=== PATIENT | male | born 1980 | race Caucasian/White ===

== ENCOUNTER → 2017-10-01 | Outpatient (CLI) | payer BC ==
[2017-10-01 11:56] LABS: Anion Gap 11 mmol/L; Blood Urea Nitrogen 15 mg/dL (9-20); Calcium 9.5 mg/dL (8.4-10.2); Carbon Dioxide 28 mmol/L (22-30); Chloride 102 mmol/L (98-107); Cholesterol 197 mg/dL (<200); Glucose 91 mg/dL (74-99); HDL Cholesterol 36 mg/dL (40-60); LDL Cholesterol,Calculated 123 mg/dL (0-99); Potassium 4.4 mmol/L (3.5-5.1); Sodium 141 mmol/L (137-145); Triglycerides 190 mg/dL (<150)
== END | disposition home or self-care (01) ==
LOC: LABWHC1 11:15
PROVIDERS: ATTEND Nurse Practitioner Family
DX: K58.0 Irritable bowel syndrome with diarrhea (principal); E66.9 Obesity, unspecified; I10 Essential (primary) hypertension; Z13.1 Encounter for screening for diabetes mellitus; Z13.220 Encounter for screening for lipoid disorders; Z68.30 Body mass index [BMI] 30.0-30.9, adult
CPT/HCPCS: 36415; 80048; 80061; 82784; 83516; 84443

== ENCOUNTER 2018-09-04 15:05 | Emergency (ER) | payer BC ==
[2018-09-04 15:13] VITALS: BP 154/93; PULSE 78; RESP 16; TEMP 97.4
[2018-09-04] MEDS ORDERED: LIDOCAINE 1% INJ 10MG/ML (20 ML MDV) SQ ONE (15:23)
--- NOTE | 2018-09-04 15:23 | ED ---
General Adult HPI - General Chief complaint: Head Injury Stated complaint: Head injury Time Seen by Provider: 09/04/18 15:14 Source: patient, RN notes reviewed, old records reviewed Mode of arrival: ambulatory Limitations: no limitations - History of Present Illness Initial comments: 37-year-old male presents to our status post head injury. 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 He has laceration to the scalp. He states his tetanus is up-to-date. He states he did not lose consciousness but came very close. He is felt lightheaded and dizzy with headache since the injury. He has been ambulatory. He has no chronic medical issues, no anticoagulation. - Related Data Allergies Allergy/AdvReac Type Severity Reaction Status Date / Time No Known Allergies Allergy Verified 09/04/18 15:13 Review of Systems ROS Statement: Those systems with pertinent positive or pertinent negative responses have been documented in the HPI. ROS Other: All systems not noted in ROS Statement are negative. Past Medical History Past Medical History: No Reported History History of Any Multi-Drug Resistant Organisms: None Reported Past Surgical History: No Surgical Hx Reported Past Psychological History: No Psychological Hx Reported Smoking Status: Never smoker Past Alcohol Use History: None Reported Past Drug Use History: None Reported General Exam Limitations: no limitations General appearance: alert, in no apparent distress Head exam: Present: normocephalic. Absent: atraumatic (Laceration to the left parietal scalp, 3 cm laceration.) Eye exam: Present: normal appearance. Absent: PERRL (And scoria, left pupil 4 mm reactive, right pupil 3 mm and reactive) ENT exam: Present: normal exam Neck exam: Present: normal inspection. Absent: tenderness, meningismus, full ROM Respiratory exam: Present: normal lung sounds bilaterally. Absent: respiratory distress, wheezes Cardiovascular Exam: Present: regular rate, normal rhythm GI/Abdominal exam: Present: soft, distended Extremities exam: Present: normal inspection, normal capillary refill. Absent: pedal edema Back exam: Present: normal inspection. Absent: full ROM, tenderness Neurological exam: Present: alert, oriented X3, CN II-XII intact. Absent: motor sensory deficit Course Vital Signs 09/04/18 15:10 Temperature 97.4 F L Pulse Rate 78 Respiratory 16 Rate Blood Pressure 154/93 O2 Sat by Pulse 96 Oximetry Procedures - Laceration Laceration #1 Consent Obtained: verbal consent Indication: laceration Site: scalp Description: linear Anesthetic Used: lidocaine 1% Anesthesia Technique: local infiltration Amount (mls): 5 Pre-repair: wound explored, irrigated extensively, deep structures intact Type of Sutures: nylon Size of Sutures: 4-0 Number of Sutures: 4 Technique: simple, interrupted Patient Tolerated Procedure: well Medical Decision Making - Medical Decision Making 37-year-old male with head injury, scalp laceration. Head CT is obtained, negative for intracranial hemorrhage or mass effect. Laceration is repaired with nylon suture, patient can return for suture removal in 10days. Disposition Clinical Impression: Hematoma of scalp, Laceration of scalp, Concussion without loss of consciousness Disposition: HOME SELF-CARE Condition: Good Instructions (If sedation given, give patient instructions): Concussion (ED), Care For Your Stitches (ED), Laceration (ED) Additional Instructions: Please have sutures removed in 10 days. Is patient prescribed a controlled substance at d/c from ED?: No Referrals: None,Stated [Primary Care Provider] - 1-2 days Christal De Leon MD [STAFF PHYSICIAN] - 1-2 days
--- NOTE | 2018-09-04 15:45 | CT ---
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 CT DLP: 1090.4 mGycm. Automated Exposure Control for Dose Reduction was Utilized. TECHNIQUE: CT scan of the head is performed without contrast. FINDINGS: Ventricles and sulci appear normal. There is no mass effect nor midline shift. There is no sign of intracranial hemorrhage. Calvarium is intact. IMPRESSION: Negative head CT scan..
== END 2018-09-04 16:17 | disposition home or self-care (01) ==
LOC: EC 15:05
DX: S06.0X0A Concussion without loss of consciousness, initial encounter (principal); S01.01XA Laceration without foreign body of scalp, initial encounter; W20.8XXA Other cause of strike by thrown, projected or falling object, initial encounter; Y93.89 Activity, other specified; Y92.89 Other specified places as the place of occurrence of the external cause
CPT/HCPCS: 70450; 99284; 12002; J2001

== ENCOUNTER → 2019-01-08 | Outpatient (CLI) | payer BC ==
[2019-01-08 11:20] LABS: Basophils % (A) 1 %; Eosinophils # (A) 0.1 k/uL (0-0.7); Eosinophils % (A) 1 %; HCT 48.1 % (39.0-53.0); HGB 15.8 gm/dL (13.0-17.5); Lymphocytes # (A) 2.5 k/uL (1.0-4.8); Lymphocytes % (A) 33 %; MCH 30.6 pg (25.0-35.0); MCHC 32.9 g/dL (31.0-37.0); MCV 93.1 fL (80.0-100.0); Mean Platelet Volume 7.2; Monocytes # (A) 0.4 k/uL (0-1.0); Monocytes % (A) 6 %; Neutrophils # (A) 4.2 k/uL (1.3-7.7); Neutrophils % (A) 57 %; Platelet Count 225 k/uL (150-450); RBC 5.17 m/uL (4.30-5.90); RDW 12.7 % (11.5-15.5); WBC 7.4 k/uL (3.8-10.6)
[2019-01-08 16:47] LABS: African American GFR (CKD) 111.7 (60.0-200.0); Albumin 4.4 g/dL (3.80-4.90); Albumin/Globulin Ratio 1.69 (1.60-3.17); Calcium 9.8 mg/dL (8.7-10.3); Globulin 2.6 g/dL (1.6-3.3); Potassium 4.5 mmol/L (3.5-5.5); Total Bilirubin 0.6 mg/dL (0.3-1.2)
[2019-01-08 16:48] LABS: Chol/HDL Ratio 5.32; LDL Cholesterol,Calculated 109.6 mg/dL (0.0-131.0); VLDL Calculation 54.4 mg/dL (5.00-40.00)
[2019-01-08 18:10] LABS: Hemoglobin A1C 5.4 % (4.0-6.0)
== END | disposition home or self-care (01) ==
LOC: LABWHC1 10:38
PROVIDERS: ATTEND Family Medicine
DX: Z00.00 Encounter for general adult medical examination without abnormal findings (principal)
CPT/HCPCS: 36415; 80053; 80061; 83036; 84443; 85025

== ENCOUNTER 2020-04-17 21:08 | Emergency (ER) | payer BC ==
[2020-04-17 21:22] VITALS: BP 160/90; PULSE 82; RESP 18; TEMP 98.8
--- NOTE | 2020-04-17 21:41 | ED ---
General Adult HPI - General Chief complaint: Fall Stated complaint: Fall, Back pain Time Seen by Provider: 04/17/20 21:24 Source: patient, RN notes reviewed Mode of arrival: ambulatory Limitations: no limitations - History of Present Illness Initial comments: Patient is a pleasant 39-year-old male presenting to the emergency Department with complaints of low back pain. 2 days ago patient was getting out of his truck when his leg slipped. Patient fell back and struck his lower back/left hip on the rail. Patient has had some discomfort since that time, somewhat worse yesterday. Patient is having some tingling of his left leg. No incontinence or retention of bowel or bladder. No weakness. No history of chronic back problems. - Related Data Home Medications Medication Instructions Recorded Confirmed Enalapril [Vasotec] 20 mg PO DAILY 04/17/20 04/17/20 Multivitamins, Thera [Multivitamin 1 tab PO DAILY 04/17/20 04/17/20 (formulary)] Zinc Gluconate [Zinc] 50 mg PO DAILY 04/17/20 04/17/20 Previous Rx's Medication Instructions Recorded Cyclobenzaprine [Flexeril] 10 mg PO TID PRN #12 tablet 04/17/20 predniSONE [Deltasone] 20 mg PO BID #10 tab 04/17/20 Allergies Allergy/AdvReac Type Severity Reaction Status Date / Time No Known Allergies Allergy Verified 04/17/20 21:53 Review of Systems ROS Statement: Those systems with pertinent positive or pertinent negative responses have been documented in the HPI. ROS Other: All systems not noted in ROS Statement are negative. Constitutional: Denies: fever Eyes: Denies: eye pain ENT: Denies: ear pain Respiratory: Denies: cough Cardiovascular: Denies: chest pain Endocrine: Denies: fatigue Gastrointestinal: Denies: abdominal pain Genitourinary: Denies: dysuria Musculoskeletal: Reports: as per HPI, back pain Skin: Denies: rash Neurological: Reports: paresthesias. Denies: weakness Past Medical History Past Medical History: Hypertension History of Any Multi-Drug Resistant Organisms: None Reported Past Surgical History: No Surgical Hx Reported Past Psychological History: No Psychological Hx Reported Smoking Status: Never smoker Past Alcohol Use History: Rare Past Drug Use History: None Reported General Exam Limitations: no limitations General appearance: alert, in no apparent distress Head exam: Present: normocephalic Eye exam: Present: normal appearance Neck exam: Present: normal inspection Respiratory exam: Present: normal lung sounds bilaterally Cardiovascular Exam: Present: regular rate, normal rhythm GI/Abdominal exam: Present: soft. Absent: tenderness Extremities exam: Present: normal inspection, tenderness (Mild tenderness left lateral/posterior hip) Back exam: Absent: vertebral tenderness Neurological exam: Present: alert Psychiatric exam: Present: normal affect, normal mood Skin exam: Present: normal color Course Vital Signs 04/17/20 21:19 Temperature 98.8 F Pulse Rate 82 Respiratory 18 Rate Blood Pressure 160/90 O2 Sat by Pulse 97 Oximetry Medical Decision Making - Medical Decision Making Patient reevaluated and updated - Radiology Data Radiology results: image reviewed (X-ray left hip and pelvis shows no acute process. Lumbar x-ray does show some spurring, otherwise no acute process) Disposition Clinical Impression: Low back pain Disposition: HOME SELF-CARE Condition: Stable Instructions (If sedation given, give patient instructions): Acute Low Back Pain (ED) Additional Instructions: Please follow-up with primary care physician in the next day or 2 for recheck. Return for weakness, loss of control of bowel or bladder, loss of sensation, worsening symptoms or other concerns. Prescription was sent to your pharmacy Prescriptions: predniSONE [Deltasone] 20 mg PO BID #10 tab Cyclobenzaprine [Flexeril] 10 mg PO TID PRN #12 tablet PRN Reason: Pain Is patient prescribed a controlled substance at d/c from ED?: No Referrals: Velasquez Leigh MD [STAFF PHYSICIAN] - 1-2 days Time of Disposition: 22:23
--- NOTE | 2020-04-17 21:59 | XR ---
EXAMINATION TYPE: XR Hip LT and AP Pelvis DATE OF EXAM: 04/17/2020 COMPARISON: None HISTORY: Pain TECHNIQUE: 3 views FINDINGS: Pelvic ring is intact. Proximal left femur and hip joint appear normal. Sacroiliac joints a ppear normal. There is no hip dysplasia. IMPRESSION: Normal pelvis and left hip exam.
--- NOTE | 2020-04-17 22:00 | XR ---
EXAMINATION TYPE: XR lumbosacral spine min 4V DATE OF EXAM: 04/17/2020 COMPARISON: NONE HISTORY: Back pain TECHNIQUE: 5 views FINDINGS: Lumbar vertebra have normal alignment. There is no compression fracture. Posterior elements are intact. There is mild spurring of the endplates. Sacroiliac joints are intact. IMPRESSION: Mild spurring. No fracture seen.
[2020-04-17] MEDS ORDERED: KETOROLAC 15 MG/ML 1 ML VIAL IM STA (22:24)
== END 2020-04-17 22:35 | disposition home or self-care (01) ==
LOC: EC 21:08
DX: M54.5 Low back pain (principal); R20.2 Paresthesia of skin; I10 Essential (primary) hypertension; Z79.899 Other long term (current) drug therapy
CPT/HCPCS: 72110; 73502; 96372; 99283; J1885

== ENCOUNTER → 2020-05-08 | Outpatient (CLI) | payer OTHER ==
--- NOTE | 2020-05-08 15:56 | XR ---
EXAMINATION TYPE: XR knee complete LT DATE OF EXAM: 05/08/2020 CLINICAL HISTORY: Fall injury with pain. TECHNIQUE: Three views of the left knee are obtained. COMPARISON: None. FINDINGS: There is no acute fracture/dislocation evident in left knee. The tri-compartment joint sp aces appear within normal limits. The overlying soft tissue appears unremarkable. IMPRESSION: As above.
--- NOTE | 2020-05-08 15:57 | XR ---
Lumbosacral spine HISTORY: Left hip and knee pain 5 views lumbosacral spine Correlation to prior exam 04/17/2020 Lumbar vertebral bodies show preserved height, alignment, and bone mineralization. No evident spondyl olysis. Disc spaces are stable. Sclerosis present in the posterior elements. There is multilevel spon dylosis. IMPRESSION: Stable degenerative disc disease, facet arthropathy.
== END | disposition home or self-care (01) ==
LOC: RADXRMAIN 14:45
PROVIDERS: ATTEND Family Medicine
DX: M51.37 Other intervertebral disc degeneration, lumbosacral region (principal); M47.817 Spondylosis without myelopathy or radiculopathy, lumbosacral region; R20.0 Anesthesia of skin
CPT/HCPCS: 72110

== ENCOUNTER 2020-05-27 11:04 | Emergency (ER) | payer BC ==
[2020-05-27 11:08] VITALS: BP 138/84; PULSE 76; RESP 20; TEMP 98.4
--- NOTE | 2020-05-27 11:57 | XR ---
EXAMINATION TYPE: XR ankle complete RT DATE OF EXAM: 05/27/2020 CLINICAL HISTORY: Pain after falling injury yesterday TECHNIQUE: Frontal, lateral and oblique images of the right ankle are obtained. COMPARISON: None. FINDINGS: There is no acute fracture/dislocation evident in the right ankle. The ankle mortise appe ars within normal limits. Anterior soft tissue phleboliths noted distal leg level. Incidental small s uperior calcaneal spur. Prominent spur or bony projection dorsal aspect of the talonavicular articula tion. IMPRESSION: There is no acute fracture or dislocation in the right ankle.
[2020-05-27] MEDS ORDERED: ACET/COD 300 MG/30 MG STARTER PACK 6 TAB BTL PO STA (12:22)
--- NOTE | 2020-05-27 12:23 | ED ---
General Adult HPI - General Chief complaint: Extremity Injury, Lower Stated complaint: ankle injury Time Seen by Provider: 05/27/20 11:09 Source: patient, RN notes reviewed Mode of arrival: ambulatory Limitations: no limitations - History of Present Illness Initial comments: 39-year-old male presents emergency department to her right ankle pain. Patient states this started after he rolled his ankle felt a pop. Patient states his pain on lateral portion he states overnight pain seemed to worsen and more difficult ambulate. Patient had no prior fractures or sprains of her ankle no other noted injuries no paresthesias - Related Data Home Medications Medication Instructions Recorded Confirmed Enalapril [Vasotec] 20 mg PO DAILY 04/17/20 04/17/20 Multivitamins, Thera [Multivitamin 1 tab PO DAILY 04/17/20 04/17/20 (formulary)] Zinc Gluconate [Zinc] 50 mg PO DAILY 04/17/20 04/17/20 Previous Rx's Medication Instructions Recorded Cyclobenzaprine [Flexeril] 10 mg PO TID PRN #12 tablet 04/17/20 predniSONE [Deltasone] 20 mg PO BID #10 tab 04/17/20 Ibuprofen [Motrin] 600 mg PO Q8HR PRN #30 tab 05/27/20 Allergies Allergy/AdvReac Type Severity Reaction Status Date / Time No Known Allergies Allergy Verified 05/27/20 11:08 Review of Systems ROS Statement: Those systems with pertinent positive or pertinent negative responses have been documented in the HPI. ROS Other: All systems not noted in ROS Statement are negative. Past Medical History Past Medical History: Hypertension History of Any Multi-Drug Resistant Organisms: None Reported Past Surgical History: No Surgical Hx Reported Past Psychological History: No Psychological Hx Reported Smoking Status: Never smoker Past Alcohol Use History: Occasional Past Drug Use History: None Reported General Exam Limitations: no limitations General appearance: alert, in no apparent distress Head exam: Present: atraumatic, normocephalic, normal inspection Respiratory exam: Present: normal lung sounds bilaterally. Absent: respiratory distress, wheezes, rales, rhonchi, stridor Cardiovascular Exam: Present: regular rate, normal rhythm, normal heart sounds. Absent: systolic murmur, diastolic murmur, rubs, gallop, clicks Extremities exam: Present: other (Right ankle there is moderate swelling the lateral malleolus region with tenderness with palpation no proximal tib-fib tenderness no foot tenderness, neurovascular intact) Course Vital Signs 05/27/20 11:06 Temperature 98.4 F Pulse Rate 76 Respiratory 20 Rate Blood Pressure 138/84 O2 Sat by Pulse 99 Oximetry Medical Decision Making - Medical Decision Making X-rays reviewed and read by radiologist no acute fracture. Patient is right ankle sprain [facility] and will follow-up with orthopedics return parameters were discussed. Disposition Clinical Impression: Right ankle sprain Disposition: HOME SELF-CARE Condition: Stable Instructions (If sedation given, give patient instructions): Ankle Sprain (ED) Additional Instructions: Please return to the Emergency Department if symptoms worsen or any other concerns. Prescriptions: Ibuprofen [Motrin] 600 mg PO Q8HR PRN #30 tab PRN Reason: Pain Is patient prescribed a controlled substance at d/c from ED?: No Referrals: Chandan Steele MD [Primary Care Provider] - 1-2 days Conrado Lundy MD [STAFF PHYSICIAN] - 1-2 days Time of Disposition: 12:23
== END 2020-05-27 12:36 | disposition home or self-care (01) ==
LOC: EC 11:04
DX: S93.401A Sprain of unspecified ligament of right ankle, initial encounter (principal); X50.1XXA Overexertion from prolonged static or awkward postures, initial encounter; I10 Essential (primary) hypertension
CPT/HCPCS: 73610; 99284; L4350

== ENCOUNTER 2020-07-01 09:57 | Emergency (ER) | payer BC ==
[2020-07-01 10:25] VITALS: BP 149/96; PULSE 92; RESP 18; TEMP 98.4
[2020-07-01] MEDS ORDERED: BACITRACIN OINT 1 EACH PACKET TOPICAL ONE (10:37)
[2020-07-01] MEDS ORDERED: LIDOCAINE 1% INJ 10MG/ML (20 ML MDV) SQ ONE (10:37)
--- NOTE | 2020-07-01 10:38 | ED ---
Wound/Laceration HPI - General Chief Complaint: Wound/Laceration Stated Complaint: L hand laceration Time Seen by Provider: 07/01/20 10:34 Source: patient Mode of arrival: ambulatory Limitations: no limitations - History of Present Illness Initial Comments: Patient is a 39-year-old male presenting to emergency Department with complaints of a laceration to his left hand. Patient states just prior to arrival, he was opening an Easter present for his child when the knife slipped and he cut the webspace between his first and second digit on the left hand. Bleeding is controlled at this time. He is not on blood thinners. His tetanus vaccine is up-to-date. There are no further complaints at this time. - Related Data Home Medications Medication Instructions Recorded Confirmed Enalapril [Vasotec] 20 mg PO DAILY 04/17/20 04/17/20 Multivitamins, Thera [Multivitamin 1 tab PO DAILY 04/17/20 04/17/20 (formulary)] Zinc Gluconate [Zinc] 50 mg PO DAILY 04/17/20 04/17/20 Previous Rx's Medication Instructions Recorded Cyclobenzaprine [Flexeril] 10 mg PO TID PRN #12 tablet 04/17/20 predniSONE [Deltasone] 20 mg PO BID #10 tab 04/17/20 Ibuprofen [Motrin] 600 mg PO Q8HR PRN #30 tab 05/27/20 Allergies Allergy/AdvReac Type Severity Reaction Status Date / Time No Known Allergies Allergy Verified 07/01/20 10:25 Review of Systems ROS Statement: Those systems with pertinent positive or pertinent negative responses have been documented in the HPI. ROS Other: All systems not noted in ROS Statement are negative. Past Medical History Past Medical History: Hypertension History of Any Multi-Drug Resistant Organisms: None Reported Past Surgical History: No Surgical Hx Reported Additional Past Surgical History / Comment(s): HAND Past Psychological History: No Psychological Hx Reported Smoking Status: Never smoker Past Alcohol Use History: Occasional Past Drug Use History: None Reported General Exam - General Exam Comments Initial Comments: GENERAL: Patient is well-developed and well-nourished. Patient is nontoxic and in no acute distress. HEAD: Atraumatic, normocephalic. EYES: Pupils equal round and reactive to light, extraocular movements intact, sclera anicteric, conjunctiva are normal. Eyelids were unremarkable. ENT: Nares patent, oropharynx clear without exudates. Moist mucous membranes. NECK: Normal range of motion, supple without lymphadenopathy or JVD. LUNGS: Unlabored respirations. Breath sounds clear to auscultation bilaterally and equal. No wheezes rales or rhonchi. HEART: Regular rate and rhythm without murmurs, rubs or gallops. ABDOMEN: Soft, nontender, normoactive bowel sounds. No guarding, no rebound. No masses appreciated. : Deferred MUSCULOSKELETAL: Normal extremities with adequate strength and normal range of motion, no pitting or edema. No clubbing or cyanosis. NEUROLOGICAL: Patient is alert and oriented x 3. Motor and sensory are also intact. Cranial nerves II through XII grossly intact. Symmetrical smile. Normal speech, normal gait. PSYCH: Normal mood, normal affect. SKIN: Warm, Dry, normal turgor, no rashes. Patient has a 2 cm laceration in the webbing space of the first and second digit of the left hand. Bleeding is con trolled. Limitations: no limitations Course Vital Signs 07/01/20 10:23 Temperature 98.4 F Pulse Rate 92 Respiratory 18 Rate Blood Pressure 149/96 O2 Sat by Pulse 96 Oximetry Procedures - Laceration Laceration #1 Consent Obtained: verbal consent Indication: laceration Site: hand (Left hand, in between webspace of first and second digit) Size (cm): 2 Description: linear Depth: simple, single layer Anesthetic Used: lidocaine 1% Anesthesia Technique: local infiltration Amount (mls): 3 Pre-repair: irrigated extensively Type of Sutures: nylon Size of Sutures: 5-0 Number of Sutures: 6 Technique: simple, interrupted Patient Tolerated Procedure: well Medical Decision Making - Medical Decision Making Patient is a 39-year-old male here with a 2 cm laceration in the webbing space of the first and second digit of the left hand. Bleeding is controlled, his tetanus vaccine is up-to-date. Patient's wound was cleaned, closed with 6, 50 sutures. Tolerated procedure well. Patient is stable for discharge. Sutures removed in 7-10 days. Disposition Clinical Impression: Laceration of left hand Disposition: HOME SELF-CARE Condition: Stable Instructions (If sedation given, give patient instructions): Care For Your Stitches (ED) Additional Instructions: Please return to the Emergency Department if symptoms worsen or any other concerns. Keep wound clean and dry. Stitches need to be removed in 7-10 days. Is patient prescribed a controlled substance at d/c from ED?: No Referrals: Chandan Steele MD [Primary Care Provider] - 1-2 days Time of Disposition: 11:12
== END 2020-07-01 11:18 | disposition home or self-care (01) ==
LOC: EC 09:57
DX: S61.412A Laceration without foreign body of left hand, initial encounter (principal); I10 Essential (primary) hypertension; Z79.899 Other long term (current) drug therapy; W26.0XXA Contact with knife, initial encounter; Y93.89 Activity, other specified
CPT/HCPCS: 99282; 12001; J2001

== ENCOUNTER 2021-12-20 00:39 | Emergency (ER) | payer BC ==
[2021-12-20 00:54] VITALS: BP 152/95; PULSE 81; RESP 18; TEMP 97.7
[2021-12-20 01:14] LABS: Basophils # (A) 0.2 k/uL (0-0.2); Basophils % (A) 2 %; Eosinophils # (A) 0.1 k/uL (0-0.7); Eosinophils % (A) 1 %; HCT 46.5 % (39.0-53.0); HGB 15.3 gm/dL (13.0-17.5); Lymphocytes # (A) 3.1 k/uL (1.0-4.8); Lymphocytes % (A) 32 %; MCH 30.3 pg (25.0-35.0); MCHC 32.8 g/dL (31.0-37.0); MCV 92.3 fL (80.0-100.0); Mean Platelet Volume 8.7; Monocytes # (A) 0.7 k/uL (0-1.0); Monocytes % (A) 7 %; Neutrophils # (A) 5.5 k/uL (1.3-7.7); Neutrophils % (A) 56 %; Platelet Count 211 k/uL (150-450); RBC 5.03 m/uL (4.30-5.90); RDW 12.3 % (11.5-15.5); WBC 9.8 k/uL (3.8-10.6)
[2021-12-20 01:26] LABS: Appearance,Urine Clear (Clear); Bilirubin,Urine Negative (Negative); Blood,Urine Moderate (Negative); Color,Urine Light Yellow; Glucose,Urine (UA) Negative (Negative); Ketones,Urine Negative (Negative); Leukocyte Esterase,Urine Negative (Negative); Mucus,Urine Occasional /hpf; Nitrite,Urine Negative (Negative); Protein,Urine Negative (Negative); RBC,Urine 58 /hpf (0-5); Specific Gravity,Urine 1.013 (1.001-1.035); Squamous Epithelial Cell,Urine <1 /hpf (0-4); Urobilinogen,Urine <2.0 mg/dL (<2.0); WBC,Urine 1 /hpf (0-5)
[2021-12-20 01:27] LABS: ALT 29 U/L (4-49); AST 25 U/L (17-59); African American GFR (CKD) >90 (>60 ml/min/1.73 sqM); Albumin 4.5 g/dL (3.5-5.0); Alkaline Phosphatase 42 U/L (38-126); Amylase 65 U/L (30-110); Anion Gap 13 mmol/L; Blood Urea Nitrogen 15 mg/dL (9-20); Calcium 9.8 mg/dL (8.4-10.2); Carbon Dioxide 25 mmol/L (22-30); Chloride 98 mmol/L (98-107); Glucose 122 mg/dL (74-99); Lipase 101 U/L (23-300); Non-African American GFR(CKD) >90 (>60 ml/min/1.73 sqM); Potassium 3.4 mmol/L (3.5-5.1); Sodium 136 mmol/L (137-145); Total Bilirubin 0.5 mg/dL (0.2-1.3); Total Protein 7.5 g/dL (6.3-8.2)
--- NOTE | 2021-12-20 01:48 | CT ---
EXAMINATION TYPE: CT abdomen pelvis wo con DATE OF EXAM: 12/20/2021 COMPARISON: None HISTORY: LT SIDE ABD & BACK PAIN, R/O RENAL STONE CT DLP: 1698.6 mGycm Automated exposure control for dose reduction was used. Images obtained from the diaphragm to the floor the pelvis with no contrast. The lung bases are clear. No pleural effusion. Heart size is normal. No pericardial effusion. Liver s pleen and stomach pancreas gallbladder appear intact. The bile ducts are not dilated. There is no adrenal mass. Kidneys have normal size. There is 3 mm calculus lower pole right kidney. T here is 1 mm calculus upper pole left kidney. There is mild left-sided hydronephrosis and hydroureter . There is obstructing calculus in the proximal left ureter measuring 3 mm. There is no retroperitone al adenopathy. Bladder distends smoothly. No inguinal hernia. No free fluid in the pelvis. No pelvic mass. There are sigmoid diverticula. No diverticulitis. Appendix appears normal. No mesente katja edema. No ascites or free air. No bowel obstruction. Lumbar vertebrae appear intact. No compression fracture. Normal alignment. The bony pelvis is intact. The hip joints are intact. IMPRESSION: Obstructing calculus proximal left ureter with left-sided hydronephrosis. Small calculi in both kidne ys.
[2021-12-20] MEDS ORDERED: TAMSULOSIN 0.4 MG CAP.ER.24H PO STA (02:38)
--- NOTE | 2021-12-20 02:52 | ED ---
Abdominal Pain HPI - General Chief Complaint: Abdominal Pain Stated Complaint: Left side ABD/Back Pain Source: RN notes reviewed Mode of arrival: ambulatory - History of Present Illness Initial Comments: This patient is a 41-year-old man who presents to have evaluation for left flank pain associated with nausea vomiting and diaphoresis. The patient states that it does remind him of previous kidney stone pain. Patient notes that he has had marked improvement in the symptoms by the time he is seen area MD Complaint: flank pain -: hour(s) Location: L flank Radiation: none Severity: severe Quality: aching Consistency: colicky Improves With: nothing Worsens With: nothing Associated Symptoms: nausea, vomiting, other (Diaphoresis) - Related Data Home Medications Medication Instructions Recorded Confirmed Enalapril/Hydrochlorothiazide 1 tab PO HS 04/08/21 04/08/21 [Enalapril/Hydrochlorothiazide 10-25 mg Tablet] amLODIPine [Norvasc] 10 mg PO HS 04/08/21 04/08/21 Previous Rx's Medication Instructions Recorded Famotidine [Pepcid] 20 mg PO BID #28 tablet 04/08/21 HYDROcodone/APAP 5-325MG [[place] 1 tab PO Q4HR PRN 3 Days #18 tab 12/20/21 5-325] Tamsulosin [Flomax] 0.4 mg PO DAILY #14 cap 12/20/21 HYDROcodone/APAP 5-325MG [[place] 1 tab PO Q6HR PRN #12 tab 12/23/21 5-325] Allergies Allergy/AdvReac Type Severity Reaction Status Date / Time No Known Allergies Allergy Verified 12/20/21 00:54 Review of Systems ROS Statement: Those systems with pertinent positive or pertinent negative responses have been documented in the HPI. ROS Other: All systems not noted in ROS Statement are negative. Constitutional: Denies: fever, chills Respiratory: Denies: cough, dyspnea Cardiovascular: Denies: chest pain, palpitations, edema Gastrointestinal: Reports: abdominal pain, nausea, vomiting. Denies: diarrhea, constipation, melena, hematochezia Genitourinary: Denies: dysuria, frequency, hematuria, testicular pain, testicular mass Musculoskeletal: Denies: back pain Skin: Denies: rash Neurological: Denies: headache, weakness Past Medical History Past Medical History: Hypertension History of Any Multi-Drug Resistant Organisms: None Reported Past Surgical History: No Surgical Hx Reported Additional Past Surgical History / Comment(s): HAND Past Psychological History: No Psychological Hx Reported Smoking Status: Never smoker Past Alcohol Use History: Occasional Past Drug Use History: None Reported General Exam General appearance: alert, in no apparent distress Head exam: Present: atraumatic, normocephalic Eye exam: Present: normal appearance. Absent: scleral icterus, conjunctival injection Neck exam: Present: normal inspection Respiratory exam: Present: normal lung sounds bilaterally. Absent: respiratory distress, wheezes, rales, rhonchi, stridor Cardiovascular Exam: Present: regular rate, normal rhythm, normal heart sounds. Absent: systolic murmur, diastolic murmur, rubs, gallop GI/Abdominal exam: Present: soft. Absent: distended, tenderness, guarding, rebound, rigid, mass Extremities exam: Present: normal inspection, normal capillary refill. Absent: pedal edema, calf tenderness Back exam: Present: normal inspection. Absent: CVA tenderness (R), CVA tenderness (L) Neurological exam: Present: alert Skin exam: Present: warm, dry, intact, normal color. Absent: rash Course Vital Signs 12/20/21 00:50 Temperature 97.7 F Pulse Rate 81 Respiratory 18 Rate Blood Pressure 152/95 O2 Sat by Pulse 98 Oximetry Medical Decision Making - Lab Data Result diagrams: 12/20/21 01:06 12/20/21 01:06 Lab Results 12/20/21 12/20/21 12/20/21 Range/Units 01:06 01:06 01:06 WBC 9.8 (3.8-10.6) k/uL RBC 5.03 (4.30-5.90) m/uL Hgb 15.3 (13.0-17.5) gm/dL Hct 46.5 (39.0-53.0) % MCV 92.3 (80.0-100.0) fL MCH 30.3 (25.0-35.0) pg MCHC 32.8 (31.0-37.0) g/dL RDW 12.3 (11.5-15.5) % Plt Count 211 (150-450) k/uL MPV 8.7 Neutrophils % 56 % Lymphocytes % 32 % Monocytes % 7 % Eosinophils % 1 % Basophils % 2 % Neutrophils # 5.5 (1.3-7.7) k/uL Lymphocytes # 3.1 (1.0-4.8) k/uL Monocytes # 0.7 (0-1.0) k/uL Eosinophils # 0.1 (0-0.7) k/uL Basophils # 0.2 (0-0.2) k/uL Sodium 136 L (137-145) mmol/L Potassium 3.4 L (3.5-5.1) mmol/L Chloride 98 (98-107) mmol/L Carbon Dioxide 25 (22-30) mmol/L Anion Gap 13 mmol/L BUN 15 (9-20) mg/dL Creatinine 0.95 (0.66-1.25) mg/dL Est GFR (CKD-EPI)AfAm >90 (>60 ml/min/1.73 sqM) Est GFR (CKD-EPI)NonAf >90 (>60 ml/min/1.73 sqM) Glucose 122 H (74-99) mg/dL Calcium 9.8 (8.4-10.2) mg/dL Total Bilirubin 0.5 (0.2-1.3) mg/dL AST 25 (17-59) U/L ALT 29 (4-49) U/L Alkaline Phosphatase 42 (38-126) U/L Total Protein 7.5 (6.3-8.2) g/dL Albumin 4.5 (3.5-5.0) g/dL Amylase 65 (30-110) U/L Lipase 101 (23-300) U/L Urine Color Light Yellow Urine Appearance Clear (Clear) Urine pH 6.0 (5.0-8.0) Ur Specific [place] 1.013 (1.001-1.035) Urine Protein Negative (Negative) Urine Glucose (UA) Negative (Negative) Urine Ketones Negative (Negative) Urine Blood Moderate H (Negative) Urine Nitrite Negative (Negative) Urine Bilirubin Negative (Negative) Urine Urobilinogen <2.0 (<2.0) mg/dL Ur Leukocyte Esterase Negative (Negative) Urine RBC 58 H (0-5) /hpf Urine WBC 1 (0-5) /hpf Ur Squamous Epith Cells <1 (0-4) /hpf Urine Mucus Occasional H (None) /hpf Disposition Clinical Impression: Calculus of kidney Disposition: HOME SELF-CARE Condition: Good Instructions (If sedation given, give patient instructions): Kidney Stones (ED) Prescriptions: Tamsulosin [Flomax] 0.4 mg PO DAILY #14 cap HYDROcodone/APAP 5-325MG [[place] 5-325] 1 tab PO Q4HR PRN 3 Days #18 tab PRN Reason: Pain HYDROcodone/APAP 5-325MG [[place] 5-325] 1 tab PO Q6HR PRN #12 tab PRN Reason: Pain Is patient prescribed a controlled substance at d/c from ED?: Yes When asked, does pt state using other controlled substances?: No If prescribed controlled substance>3 days was MAPS reviewed?: Prescribed <3 Days If opioid is for acute pain is fill amount 7 days or less?: Yes If Rx opioid, was Start Talking consent form obtained?: Yes Referrals: Chandan Steele MD [Primary Care Provider] - 1-2 days Butch Granger MD [STAFF PHYSICIAN] - 1-2 days
== END 2021-12-20 03:03 | disposition home or self-care (01) ==
LOC: EC 00:39
DX: N20.0 Calculus of kidney (principal); I10 Essential (primary) hypertension; Z79.899 Other long term (current) drug therapy
CPT/HCPCS: 36415; 74176; 80053; 81001; 82150; 83690; 85025; 99284

== ENCOUNTER 2024-02-22 19:45 | Emergency (ER) | payer BC ==
[2024-02-22 19:57] VITALS: TEMP 98.5
--- NOTE | 2024-02-22 20:30 | ED ---
Chest Pain HPI - General Chief Complaint: Chest Pain Stated Complaint: Chest Pain Time Seen by Provider: 02/22/24 20:11 Source: patient, RN notes reviewed Mode of arrival: ambulatory Limitations: no limitations - History of Present Illness Initial Comments: This is a 43-year-old male who presents to the emergency department for chest pain. States that it has been intermittent over the last week. He is unable to correlate this with exertional activities or anything in particular. States that shortly before arrival the pain came back while he was eating dinner and lasted about an hour. Pain is described as a tightness. It is primarily in the left side of the chest. He had occasional shortness of breath last week that has since resolved. Denies any history of cardiac issues. He has no family history of premature CAD. Denies any pain currently. States that he did have a stress test 2 months ago that was negative. MD Complaint: chest pain - Related Data Home Medications Medication Instructions Recorded Confirmed Enalapril/Hydrochlorothiazide 1 tab PO HS 04/08/21 04/08/21 [Enalapril/Hydrochlorothiazide 10-25 mg Tablet] amLODIPine [Norvasc] 10 mg PO HS 04/08/21 04/08/21 Previous Rx's Medication Instructions Recorded Famotidine [Pepcid] 20 mg PO BID #28 tablet 04/08/21 HYDROcodone/APAP 5-325MG [[place] 1 tab PO Q4HR PRN 3 Days #18 tab 12/20/21 5-325] Tamsulosin [Flomax] 0.4 mg PO DAILY #14 cap 12/20/21 HYDROcodone/APAP 5-325MG [[place] 1 tab PO Q6HR PRN #12 tab 12/23/21 5-325] Allergies Allergy/AdvReac Type Severity Reaction Status Date / Time No Known Allergies Allergy Verified 02/22/24 19:57 Review of Systems ROS Statement: Those systems with pertinent positive or pertinent negative responses have been documented in the HPI. ROS Other: All systems not noted in ROS Statement are negative. Past Medical History Past Medical History: Hypertension History of Any Multi-Drug Resistant Organisms: None Reported Past Surgical History: No Surgical Hx Reported Additional Past Surgical History / Comment(s): HAND Past Psychological History: No Psychological Hx Reported Smoking Status: Never smoker Past Alcohol Use History: Occasional Past Drug Use History: None Reported General Exam Limitations: no limitations General appearance: alert, in no apparent distress Head exam: Present: atraumatic, normocephalic, normal inspection Respiratory exam: Present: normal lung sounds bilaterally. Absent: respiratory distress, wheezes, rales, rhonchi, stridor Cardiovascular Exam: Present: regular rate, normal rhythm, normal heart sounds. Absent: systolic murmur, diastolic murmur, rubs, gallop, clicks GI/Abdominal exam: Present: soft, normal bowel sounds. Absent: distended, tenderness, guarding, rebound, rigid Neurological exam: Present: alert, oriented X3, CN II-XII intact Psychiatric exam: Present: normal affect, normal mood Skin exam: Present: warm, dry, intact, normal color. Absent: rash Course Vital Signs 02/22/24 02/22/24 02/23/24 19:54 21:02 00:40 Temperature 98.5 F Pulse Rate 80 79 84 Respiratory 18 19 16 Rate Blood Pressure 165/89 139/93 152/92 O2 Sat by Pulse 98 97 98 Oximetry Chest Pain MDM - MDM This is a 43 year old male who presents to the emergency department for chest pain. Was pt. sent in by a medical professional or institution? @ -No Did you speak to anyone other than the patient for history? @ -No Did you review nursing and triage notes? @ -Yes, and I agree, it is accurate with regards to the patient's symptoms. Were old charts reviewed? @ -No Differential Diagnosis? @ -Differential Chest Pain: Stable Angina, Unstable Angina, STEMI, NSTEMI Aortic Dissection, Pneumothorax, Musculoskeletal, Esophageal Spasm GERD, Cholecystitis, Pancreatitis, Zoster, this is not meant to be an all-inclusive list. EKG interpreted by me (3pts min.)? @ -EKG interpreted by me demonstrating the following: Sinus rhythm. Ventricular rate 76 bpm, MD interval 159 ms, QRS duration 102 ms, QTc 408 ms. X-rays interpreted by me (1pt min.)? @ -Chest x-ray obtained, my interpretation identifies no localized consolidations or infiltrates. CT interpreted by me (1pt min.)? @ -Not obtained U/S interpreted by me (1pt. min.)? @ -Not obtained What testing was considered but not performed? (CT, X-rays, U/S, labs)? Why? @ -None What meds were considered but not given? Why? @ -None Did you discuss the management of the patient with other professionals? @ -No Did you reconcile home meds? @ -No Was smoking cessation discussed for >3mins.? @ -No Was critical care preformed (if so, how long)? @ -No Were there social determinants of health that impacted care today? How? (Homelessness, low income, unemployed, alcoholism, drug addiction, transportation, low edu. Level, literacy, decrease access to med. care, fdc, rehab)? @ -No Was there de-escalation of care discussed even if they declined? (Discuss DNR or withdrawal of care, Hospice)? @ -No What co-morbidities impacted this encounter? (DM, HTN, Smoking, COPD, CAD, Cancer, CVA, Hep., AIDS, mental health diagnosis, sleep apnea, morbid obesity)? @ -HTN Was patient admitted / discharged? @ -Discharged. Lab work unremarkable including a negative troponin and negative D-dimer. Chest x-ray reveals no acute process. Advised that while his workup is currently negative, a cardiac process cannot entirely be ruled out. Advised admission for optimal evaluation. However, patient requested discharge home. He was agreeable to a repeat troponin. Troponin repeated after 3 hours and remained negative. He did not have any episodes of chest pain while in the emergency department. He was discharged home in stable condition with strict return parameters. Case discussed with ED attending Dr. Snow. Return precautions reviewed in depth, the patient is instructed to return to the emergency department with any new, worsening, or concerning symptoms. Patient ve rbalized understanding. Undiagnosed new problem with uncertain prognosis? @ -None Drug Therapy requiring intensive monitoring for toxicity (Heparin, Nitro, Insul in, Cardizem)? @ -None Were any procedures done? @ -None Diagnosis/symptom? @ -Chest pain Acute, or Chronic, or Acute on Chronic? @ -Acute Uncomplicated (without systemic symptoms) or Complicated (systemic symptoms)? @ -Uncomplicated Side effects of treatment? @ -None Exacerbation, Progression, or Severe Exacerbation] @ -Not applicable Poses a threat to life or bodily function? @ -This will depend on the cause Disposition Clinical Impression: Chest pain Disposition: HOME SELF-CARE Instructions (If sedation given, give patient instructions): Chest Pain (ED) Additional Instructions: Return to the emergency department with any new, worsening, or concerning symptoms. Follow up with your primary care provider in 1-2 days and with your vascular manager. Is patient prescribed a controlled substance at d/c from ED?: No Referrals: Chandan Steele MD [Primary Care Provider] - 1-2 days Time of Disposition: 00:20
[2024-02-22 20:53] LABS: Basophils # (A) 0.1 k/uL (0-0.2); Basophils % (A) 1 %; Eosinophils # (A) 0.1 k/uL (0-0.7); Eosinophils % (A) 1 %; HCT 46.3 % (39.0-53.0); HGB 15.8 gm/dL (13.0-17.5); Lymphocytes # (A) 3.4 k/uL (1.0-4.8); Lymphocytes % (A) 44 %; MCH 31.8 pg (25.0-35.0); MCHC 34.2 g/dL (31.0-37.0); MCV 92.9 fL (80.0-100.0); Mean Platelet Volume 8.2; Monocytes # (A) 0.5 k/uL (0-1.0); Monocytes % (A) 6 %; Neutrophils # (A) 3.6 k/uL (1.3-7.7); Neutrophils % (A) 46 %; Platelet Count 217 k/uL (150-450); RBC 4.98 m/uL (4.30-5.90); RDW 12.6 % (11.5-15.5); WBC 7.9 k/uL (3.8-10.6)
[2024-02-22 21:03] LABS: ALT 36 U/L (4-49); AST 26 U/L (17-59); African American GFR (CKD) >90 (>60 ml/min/1.73 sqM); Albumin 4.3 g/dL (3.5-5.0); Alkaline Phosphatase 48 U/L (38-126); Anion Gap 6 mmol/L; Blood Urea Nitrogen 18 mg/dL (9-20); Calcium 9.2 mg/dL (8.4-10.2); Carbon Dioxide 27 mmol/L (22-30); Chloride 105 mmol/L (98-107); Glucose 124 mg/dL (74-99); Lipase 107 U/L (23-300); Non-African American GFR(CKD) 78 (>60 ml/min/1.73 sqM); Potassium 3.9 mmol/L (3.5-5.1); Sodium 138 mmol/L (137-145); Total Bilirubin 0.6 mg/dL (0.2-1.3); Total Protein 7.6 g/dL (6.3-8.2)
[2024-02-22 21:06] LABS: Partial Thromboplastin Time 24.2 sec (22.0-30.0); Prothrombin Time 10.6 sec (10.0-12.5)
--- NOTE | 2024-02-22 21:07 | XR ---
EXAMINATION TYPE: XR chest 2V DATE OF EXAM: 02/22/2024 9:02 PM COMPARISON: None available. CLINICAL INDICATION: Male, 43 years old with history of Chest Pain; [facility] TECHNIQUE: XR chest 2V Frontal and lateral views of the chest. FINDINGS: Lungs/Pleura: There is no evidence of pleural effusion, focal consolidation, or pneumothorax. Pulmonary vascularity: Unremarkable. Heart/mediastinum: Cardiomediastinal silhouette is unremarkable. Musculoskeletal: No acute osseous pathology. Other findings: None IMPRESSION: No acute cardiopulmonary disease/process. [facility], , 02/22/2024 9:04 PM
[2024-02-23] MEDS: CYCLOBENZAPRINE 10MG STARTER 3 TAB BTL PO STA (00:36)
[2024-02-23 00:45] VITALS: BP 152/92; PULSE 84; RESP 16
== END 2024-02-23 00:45 | disposition home or self-care (01) ==
LOC: EC 19:45
DX: R07.89 Other chest pain (principal); I10 Essential (primary) hypertension; Z79.899 Other long term (current) drug therapy
CPT/HCPCS: 36415; 71046; 80053; 83690; 83735; 84484; 85025; 85379; 85610; 85730; 93005; 99285